=== PATIENT | female | born 1990 | race Two or more races ===

== ENCOUNTER → 2016-05-05 | Outpatient (CLI) | payer BC | LOC: FIMAGING 14:17 | PROVIDERS: ATTEND Advanced Practice Midwife | DX: O43.123 Velamentous insertion of umbilical cord, third trimester (principal); O26.833 Pregnancy related renal disease, third trimester; Z3A.25 25 weeks gestation of pregnancy ==

== ENCOUNTER → 2016-06-02 | Outpatient (CLI) | payer BC | LOC: FIMAGING 13:50 | PROVIDERS: ATTEND Advanced Practice Midwife | DX: O43.123 Velamentous insertion of umbilical cord, third trimester (principal); Z3A.29 29 weeks gestation of pregnancy ==

== ENCOUNTER 2016-08-01 06:20 | Inpatient (IN) | payer BC ==
--- NOTE | 2016-08-01 06:48 | OBPROG ---
OBG Labor Progress Note Assessment/Plan: Assessment:cat1 fhr pain well managed contractions q 15 exam /-1 cephalic srom clear fluid 0315 Plan:expectant management of labor 08/01/16 06:45 Subjective: doing well denies need for pain relief. Yesenia irregular srom clear fluid 0315 - SVE Dilation (cm): 4 Effacement (%): 75 Station: -1 - Physical Exam General Appearance: WD/WN, alert, no apparent distress Neck: non-tender, full range of motion, supple, normal inspection Respiratory: chest non-tender, lungs clear, normal breath sounds Cardiac/Chest: regular rate, rhythm Abdomen: normal bowel sounds Extremities: normal range of motion, Jonathan's sign (negative bilaterally) DTR- Lower Extremities: Knee (R): 1+, Knee (L): 1+ (no clonus bilaterally) Skin: normal color, warm/dry Neuro/Psych: no motor/sensory deficits, alert, normal mood/affect, oriented x 3 ICD10 Worksheet Patient Problems: Problems Problem Status Onset LABOR ROM Acute
[2016-08-01] MEDS ORDERED: OLIVE OIL 118 ML BTL MISC PRN (06:50)
[2016-08-01] MEDS ORDERED: TERBUTALINE SULFATE 1 MG/ML VIAL IV PRN (06:50)
[2016-08-01] MEDS ORDERED: LR 1,000 ML IV PRN (06:50)
[2016-08-01] MEDS ORDERED: EPSOM SALT 454 GM TP PRN (06:50)
[2016-08-01] MEDS ORDERED: OXYTOCIN/RINGERS LACTATE 1,000 ML IV PRN (06:50)
[2016-08-01] MEDS ORDERED: LIDOCAINE 1% 300 MG/30 ML SDV ONE (07:11)
[2016-08-01] MEDS ORDERED: OLIVE OIL 118 ML BTL ONE (07:11)
[2016-08-01] MEDS ORDERED: AMMONIA AROMATIC 1 EACH AMP IH ONE (07:12)
[2016-08-01] MEDS ORDERED: MISOPROSTOL 200 MCG TAB ONE (07:12)
[2016-08-01 07:17] LABS: % IMMATURE GRANULYOCYTES 0.5 % (0.0-1.1); ABSOLUTE IMMATURE GRANULOCYTES 0.05 10^3/uL (0.00-0.10); ADD DIFF? NO; ADD MORPH? NO; ADD SCAN? NO; ATYPICAL LYMPHOCYTE FLAG 10 (0-99); FRAGMENT RBC FLAG 0 (0-99); HEMATOCRIT 35.8 % (38.0-47.0); HEMOGLOBIN 12.2 g/dL (12.6-16.3); LEFT SHIFT FLG 0 (0-99); LIPEMIA HEMOLYSIS FLAG 90 (0-99); MEAN CELL HEMOGLOBIN 30.3 pg (27.9-34.1); MEAN CELL HEMOGLOBIN CONCENTR. 34.1 g/dL (32.4-36.7); MEAN CELL VOLUME 89.1 fL (81.5-99.8); MEAN PLATELET VOLUME 9.5 fL (8.7-11.7); PLATELET CLUMPS FLAG 0 (0-99); PLATELET COUNT 192 10^3/uL (150-400); RED BLOOD CELL COUNT 4.02 10^6/uL (4.18-5.33); RED CELL DISTRIBUTION WIDTH 12.9 % (11.5-15.2)
--- NOTE | 2016-08-01 07:37 | GHP ---
[f rep st] HISTORY AND PHYSICAL DATE OF ADMISSION: 08/01/2016 HISTORY OF PRESENT ILLNESS: Patient is a 25-year-old 1, para 0, with an EDC of 08/13/2016, which gives her a gestational age of 38 and 2/7 weeks', who comes in with rupture of membranes at 3: 15 on 08/01/2016, and regular contractions. Significant other's name is Damon. States feeling posit sofia movement, denies bleeding. Patient has been seeing [facility] routinely since 0 04/08/2016 at 21 and 5/7 weeks'. MEDICAL HISTORY: History of migraine headaches, history of cystitis, kidney stones in 2013. SURGICAL HISTORY: [place] teeth, kidney stones. OBSTETRIC HISTORY: Present : Transfer of care at 20 weeks. M consult for dilated right ureter of baby, intracardiac echogenic foci of the left ventricle and a velamentous insertion of th e cord. Plan is to get a repeat ultrasound of the kidneys of the baby with delivery. SOCIAL HISTORY: Patient is a nonsmoker, denies drug use. . Significant other is Damon. FAMILY HISTORY: Noncontributory. LABORATORY DATA: Patient is O positive. Antibody negative. RPR is nonreactive. Rubella is immune . Hepatitis is negative. Trio screen is negative. HIV is negative. Pap, gonorrhea, and chlamydia are negative. Verifi is negative. One-hour GTT is within normal limits. Drug screen is neg ative. Varicella is immune. PHYSICAL ASSESSMENT: GENERAL: Patient is awake, alert, oriented x3. LUNGS: Clear bilaterally. A BDOMEN: Bowel sounds are positive in all 4 quadrants. EXTREMITIES: DTRs are 1+ bilaterally. Asiya ns sign is negative bilaterally. : Patient is zac routinely. There was a noted variable with contraction. ASSESSMENT: Patient is coping well. Has thoughts about delivery. Will choose nonmedicated, nonint erventive. PLAN: 1. GBS negative. 2. Expectant management of labor. 3. IV fluids to assist and support fetus. /[id number]/MODL
--- NOTE | 2016-08-01 12:53 | OBPROG ---
OBG Labor Progress Note Assessment/Plan: Assessment:cat2 fhr pain well managed contractions q 3-4 exam 6//-1 cephalic srom clear fluid 0315 continued clear fluid coping well Plan:expectant management of labor 08/01/16 06:45 08/01/16 12:52 Objective: 08/01/16 07:00 Patient ABO/Rh O POSITIVE 08/01/16 07:00 - SVE Dilation (cm): 6 Effacement (%): 100 Station: -1 Oxytocin Orders Assessment - Pre-Induction/Augmentation Assessment Gestational Age: 38 week(s) and 2 day(s) ICD10 Worksheet Patient Problems: Problems Problem Status Onset LABOR ROM Acute
--- NOTE | 2016-08-01 17:29 | OBPROG ---
OBG Labor Progress Note Assessment/Plan: Assessment:cat2 fhr pain well managed contractions q 3-4 exam 8/100/0 cephalic srom clear fluid 0315 continued clear fluid coping well with increased need for assistance Plan:expectant management of labor 08/01/16 06:45 08/01/16 12:52 08/01/16 17:28 Subjective: feeling greater pain and some pressure with contractions Objective: 08/01/16 07:00 Patient ABO/Rh O POSITIVE 08/01/16 07:00 - SVE Dilation (cm): 8 Effacement (%): 100 Station: 0 Oxytocin Orders Assessment - Pre-Induction/Augmentation Assessment Gestational Age: 38 week(s) and 2 day(s) ICD10 Worksheet Patient Problems: Problems Problem Status Onset LABOR ROM Acute
--- NOTE | 2016-08-01 18:02 | OBPROG ---
OBG Labor Progress Note Assessment/Plan: Assessment:cat2 fhr pain well managed contractions q 3-4 exam 10100/0 cephalic srom clear fluid 0315 continued clear fluid coping well with increased need for assistance feeling the urge to push. /however fighting the urge will wait a bit to push until patient insticntually will push Plan:expectant management of labor 08/01/16 06:45 08/01/16 12:52 08/01/16 17:28 08/01/16 18:01 Objective: 08/01/16 07:00 Patient ABO/Rh O POSITIVE 08/01/16 07:00 - SVE Dilation (cm): 10 Effacement (%): 100 Station: +1 Oxytocin Orders Assessment - Pre-Induction/Augmentation Assessment Gestational Age: 38 week(s) and 2 day(s) ICD10 Worksheet Patient Problems: Problems Problem Status Onset LABOR ROM Acute
[2016-08-01] MEDS: IBUPROFEN 600 MG TAB PO PRN (19:21)
[2016-08-01] MEDS ORDERED: SIMETHICONE 80 MG TAB CHEW PO PRN (19:23)
[2016-08-01] MEDS ORDERED: HYDROCORTISONE 0.5% CREAM TP PRN (19:23)
[2016-08-01] MEDS ORDERED: HYDROCODONE/APAP 5/325 TAB PO PRN (19:23)
[2016-08-01] MEDS ORDERED: ACETAMINOPHEN 325 MG TAB PO PRN (19:23)
--- NOTE | 2016-08-01 19:33 | OBDEL ---
Info Type: Vaginal GBS+: No Indications for Delivery: Spontaneous Labor, SROM Vaginal Delivery - Labor and Delivery Onset of Contractions Date: 08/01/16 Onset of Contractions Time: 04:45 Onset of Contractions Type: Spontaneous Rupture of Membranes Date: 08/01/16 Rupture of Membranes Time: 03:15 Rupture of Membranes Type: Spontaneous Amniotic Fluid Color: Clear Dilation Complete Date: 08/01/16 Dilation Complete Time: 17:45 Placenta Delivery Date: 08/01/16 Placenta Delivery Time: 18:45 Total Hours of Labor: 14 Laceration: 2nd Degree Repair: 3-0 Vaginal Sponge Count Correct: Yes Vaginal Needle Count Correct: Yes Vaginal Sweep Performed: Yes EBL: 300 Delivery Events: None ICD10 Worksheet Patient Problems: Problems Problem Status Onset LABOR ROM Acute
[2016-08-02] MEDS: IBUPROFEN 600 MG TAB PO PRN ×4 (01:21→20:56)
[2016-08-02] MEDS: DOCUSATE SODIUM 100 MG CAP PO PRN (07:03)
--- NOTE | 2016-08-02 07:44 | OBPP ---
Progress Note Assessment/Plan: Assessment: 1) s/p PPD #1 - pt is stable 2) Anemia - pt is asymptomatic Plan: Continue routine pp care Cont iron BID Plan for d/c home in am 08/02/16 07:46 Subjective: Pt seen and examined. Doing well, no complaints. Some cramping, relief with Motrin. Moderate lochia. Voiding without difficulty. Passing flatus. No BM. BF without difficulty. Objective: 08/02/16 05:40 Patient ABO/Rh O POSITIVE 08/01/16 07:00 Temp Pulse Resp BP Pulse Ox 36.4 C 105 H 18 124/77 H 08/01/16 22:26 08/01/16 22:26 08/01/16 22:26 08/01/16 22:26 Uterine Position/Fundal Height: Umbilicus -2 Uterine Tone: Firm Physical Exam - Physical Exam General Appearance: WD/WN, alert, no apparent distress Respiratory: lungs clear, normal breath sounds Cardiac/Chest: regular rate, rhythm Abdomen: normal bowel sounds, non-tender, soft, flatus (+) Extremities: non-tender, normal inspection Skin: normal color, warm/dry Neuro/Psych: alert, normal mood/affect, oriented x 3
[2016-08-02] MEDS: IRON POLYSAC/IRON HEME 28 MG TAB PO SCH (10:19)
[2016-08-02 21:06] VITALS: O2SAT 96
[2016-08-03] MEDS: IBUPROFEN 600 MG TAB PO PRN ×2 (02:59→09:50)
--- NOTE | 2016-08-03 09:05 | SOAPPROG ---
SOAP Progress Note Assessment/Plan: Assessment: ppd# 2 s/p anemia breast feeding Plan: continue iron and vitamins discharge instructions 08/03/16 09:03 Subjective: patient is doing well. pain is well controlled. normal lochia. breast feeding is going well. denies headache and changes in vision. normal lochia. voiding without difficulty. Objective: Vital Signs Temp Pulse Resp BP Pulse Ox 36.8 C 85 18 113/79 96 08/02/16 20:00 08/02/16 20:00 08/02/16 20:00 08/02/16 20:00 08/02/16 20:00 Laboratory Results 08/02/16 05:40 08/02/16 08/03/16 08/04/16 05:59 05:59 05:59 Output Total 300 Balance -300 Physical Exam - Physical Exam General Appearance: WD/WN, alert, no apparent distress Respiratory: chest non-tender, lungs clear, normal breath sounds Cardiac/Chest: normal peripheral pulses, regular rate, rhythm Abdomen: normal bowel sounds, non-tender, soft, other (fundus firm and non tender) Skin: normal color, warm/dry Extremities: normal range of motion, non-tender, normal inspection, normal capillary refill Neuro/Psych: no motor/sensory deficits, alert, normal mood/affect, oriented x 3 ICD10 Worksheet Patient Problems: Problems Problem Status Onset LABOR ROM Acute
[2016-08-03] MEDS: DOCUSATE SODIUM 100 MG CAP PO PRN (09:49)
[2016-08-03] MEDS: IRON POLYSAC/IRON HEME 28 MG TAB PO SCH (09:49)
[2016-08-03] MEDS ORDERED: LIDOCAINE 1% 2 ML INJ ONE (11:21)
[2016-08-03 11:28] VITALS: BP 111/69; PULSE 87; RESP 16; TEMP 97.1
--- NOTE | 2016-08-03 15:27 | OBGCSDC ---
General Delivery Information - General Info : 1 Para: 1 Labs: Patient ABO/Rh O POSITIVE 08/01/16 07:00 Hct 30.4 % (38.0-47.0) L 08/02/16 05:40 Vaginal - Diagnosis Labor: Spontaneous Rupture of Membranes Type: Spontaneous Amniotic Fluid Color: Clear Laceration: 2nd Degree Repair: 3-0 Delivery Events: None - Operations/Procedures L&D Analgesia/Anesthesia Type: Local - Hospital Course Intrapartum: srom. progressed into labor : uncomplicated post course. started on iron. breast feeding. - Delivery L&D Analgesia/Anesthesia Type: Local Data Ramirez Delivery Date: 08/01/16 Delivery Time: 18:41 MANDI: 08/13/16 Gestational Age: 38 week(s) and 4 day(s) Sex of Infant: Male Weight (gm): 2850 g Score (1 Min): 8 Score (5 Min): 9 Discharge Information - Discharge Information Condition: Good
== END 2016-08-03 13:30 | disposition home or self-care (01) | DRG 775 ==
LOC: FLD 06:20 → FOB 21:38
PROVIDERS: ADMIT Obstetrics & Gynecology; ATTEND Obstetrics & Gynecology
PROC: 10E0XZZ Delivery of Products of Conception, External Approach (ICD-10-PCS; principal; 2016-08-01)
PROC: 0KQM0ZZ Repair Perineum Muscle, Open Approach (ICD-10-PCS; principal; 2016-08-01)
DX: O70.1 Second degree perineal laceration during delivery (principal); Z3A.38 38 weeks gestation of pregnancy; Z37.0 Single live birth
CPT/HCPCS: J2590

== ENCOUNTER → 2016-08-23 | Outpatient (CLI) | payer BC | LOC: FLACT 12:50 | PROVIDERS: ATTEND Advanced Practice Midwife | DX: O92.79 Other disorders of lactation (principal); N64.4 Mastodynia | CPT/HCPCS: G0463 ==

== ENCOUNTER 2017-10-20 01:56 | Inpatient (IN) | payer BC ==
[2017-10-20] MEDS ORDERED: LR 1,000 ML IV PRN (02:51)
[2017-10-20] MEDS ORDERED: IBUPROFEN 600 MG TAB PO PRN (02:51)
[2017-10-20] MEDS ORDERED: TERBUTALINE SULFATE 1 MG/ML VIAL IV PRN (02:51)
[2017-10-20] MEDS ORDERED: MISOPROSTOL 200 MCG TAB PR PRN (02:51)
[2017-10-20] MEDS ORDERED: OXYTOCIN/RINGERS LACTATE 1,000 ML IV PRN (02:51)
[2017-10-20] MEDS ORDERED: LIDOCAINE 1% 300 MG/30 ML SDV SC PRN (02:51)
[2017-10-20] MEDS ORDERED: OLIVE OIL 118 ML BTL MISC PRN (02:51)
[2017-10-20] MEDS ORDERED: EPSOM SALT 454 GM TP PRN (02:51)
--- NOTE | 2017-10-20 03:22 | PDGENHP ---
History and Physical History and Physical: Care: [facility] HPI: Patient is a 27 yo with IUP@38-4wks that presents to L&D with complaints of contractions since 2300. She states they have increased in pain since 0130. She denies any LOF, VB. She reports +FM. She denies any prodromal symptoms of HSV. Denies any outbreaks. EDC: 10/30/17 which is based on Ultrasound at 12 weeks. Her is complicated by: unknown LMP, short interval, HSV2, anemia Review of Systems: Constitutional: Denies any fever, chills, or fatigue HEENT: denies any visual changes, difficulty swallowing, hearing loss Cardiovascular: Denies any chest pain, palpitations, leg swelling Respiratory: denies any cough, wheezing, or shortness of breathe GI: Denies any nausea, vomiting, diarrhea, constipation : denies any dysuria, urgency, frequency, vaginal bleeding Musculoskeletal: denies any muscle or bone pain Skin: denies any rashes Neuro: denies any headache, seizures, lightheadedness, dizziness, or loss of consciousness Psychiatric: denies any depression, anxiety, or SI/HI thoughts HISTORY: Previous OB history: (6#5) Past medical history: HSV2 Past surgical history: none Social: Denies any alcohol, tobacco, or drug use. Family history: Not relevant Medications: PNV, acyclovir, iron Allergies (list reaction): NKDA LABS: Rh: O+ ABS: Neg Rubella: Immune HbsAg: NR HIV: NR VDRL: NR 1hr: 85 GC: Neg Chlamydia: Neg Pap: Normal GBS: negative PHYSICAL EXAM: Constitutional: WN, A&Ox3 HEENT: normocephalic atraumatic, supple Skin: Warm, dry, intact Heart: RRR, no murmur Chest: CTA-B Abdomen: Soft, nontender, gravid SVE: 5/80/-2 Extremities: trace edema, negative homans sign Neuro: grossly normal Psych: normal affect assessment: FHT baseline 140 +accels, no decels, moderate variability Contractions: toco q 4-6 Assessment: 1) 27yo with IUP@ 38-4wks 2) active labor 3) GBS negative 4) Cat 1 FHR tracing Plan: 1) Admit to L&D 2) IA per protocol 3) hydrotherapy/ambulation 4) AROM PRN 5) anticipate Today's visit was approximately 30 min, of which >50% of visit 20 min, was spent face to face with pt on direct counseling/coordination of care.
[2017-10-20 04:13] LABS: PLATELET COUNT 202 10^3/uL (150-400)
[2017-10-20] MEDS ORDERED: AMMONIA AROMATIC 1 EACH AMP IH ONE (04:36)
[2017-10-20] MEDS ORDERED: TERBUTALINE SULFATE 1 MG/ML VIAL ONE (04:36)
[2017-10-20] MEDS ORDERED: LIDOCAINE 1% 300 MG/30 ML SDV ONE (04:36)
[2017-10-20] MEDS ORDERED: OLIVE OIL 118 ML BTL ONE (04:36)
[2017-10-20] MEDS ORDERED: MISOPROSTOL 200 MCG TAB ONE (04:36)
[2017-10-20] MEDS ORDERED: OXYTOCIN 10 UNIT/ML VIAL ONE (04:36)
[2017-10-20] MEDS ORDERED: METHYLERGONOVINE MAL 0.2 MG/ML INJ ONE (05:26)
[2017-10-20] MEDS ORDERED: SIMETHICONE 80 MG TAB CHEW PO PRN (05:40)
[2017-10-20] MEDS ORDERED: HYDROCORTISONE 0.5% CREAM TP PRN (05:40)
[2017-10-20] MEDS ORDERED: DOCUSATE SODIUM 100 MG CAP PO PRN (05:40)
--- NOTE | 2017-10-20 06:00 | OBDEL ---
Info Type: Vaginal Presentation at Delivery: Vertex L&D Analgesia/Anesthesia Type: None GBS+: No Intrapartum Medications: Discontinued Medications Generic Name Dose Route Start Last Admin Trade Name Brittnee PRN Reason Stop Dose Admin Ibuprofen 600 mg 10/20/17 02:51 10/20/17 05:38 Motrin PO 600 mg ONCE PRN Administration post , pain Indications for Delivery: Spontaneous Labor Vaginal Delivery - Delivery Provider Delivery Physician/CNM: Quynh Azevedo - Labor and Delivery Onset of Contractions Date: 10/19/17 Onset of Contractions Time: 23:30 Onset of Contractions Type: Spontaneous Rupture of Membranes Date: 10/20/17 Rupture of Membranes Time: 04:23 Rupture of Membranes Type: Artificial Amniotic Fluid Color: Clear Dilation Complete Date: 10/20/17 Dilation Complete Time: 05:07 Placenta Delivery Date: 10/20/17 Placenta Delivery Time: 05:18 Total Hours of Labor: 5 Non-surgical Procedures: Amniotomy Vaginal Sponge Count Correct: Yes Vaginal Needle Count Correct: Yes Vaginal Sweep Performed: Yes EBL: 350 Delivery Comment: delivered without difficulty. spontaneous cry. dad assisted in . baby to mothers chest. Data MANDI: 10/30/17 Gestational Age: 38 week(s) and 4 day(s) Ramirez Delivery Date: 10/20/17 Delivery Time: 05:12 Sex of : Male Score (1 Min): 8 Score (5 Min): 9 ICD10 Worksheet Patient Problems: Problems Problem Status Onset Normal labor and delivery Acute LABOR ROM Acute - ICD10 Problem Qualifiers (1) Normal labor and delivery
[2017-10-20] MEDS: ACETAMINOPHEN 325 MG TAB PO PRN ×3 (06:33→18:45)
[2017-10-20] MEDS: IBUPROFEN 600 MG TAB PO PRN ×3 (11:30→22:32)
[2017-10-20] MEDS ORDERED: HYDROCODONE/APAP 5/325 TAB PO PRN (19:27)
[2017-10-21] MEDS: ACETAMINOPHEN 325 MG TAB PO PRN ×3 (01:09→14:11)
[2017-10-21] MEDS: IBUPROFEN 600 MG TAB PO PRN ×2 (05:01→11:27)
--- NOTE | 2017-10-21 10:53 | OBPP ---
Progress Note Assessment/Plan: Assessment: 1) 2) Post- day 1 3) Normal PP progress 4) Breast feeding mom Plan: 1) support 2) D/C home today after circumcision 10/21/17 10:48 Subjective/ Course: 10/21/17 10:50 Pt doing well, reports cramping when breast feeding. Denies heavy bleeding, severe pain or engorgement. Objective: 10/20/17 20:26 Patient ABO/Rh O POSITIVE 10/20/17 04:01 Temp Pulse Resp BP Pulse Ox 36.3 C 93 15 114/72 96 10/21/17 08:00 10/21/17 08:00 10/21/17 08:00 10/21/17 08:00 10/21/17 08:00 VSS Uterine Position/Fundal Height: At Umbilicus Uterine Tone: Firm
--- NOTE | 2017-10-21 11:05 | OBGCSDC ---
General Delivery Information - General Info : 2 Para: 2 Abortions: 0 Type: Vaginal L&D Analgesia/Anesthesia Type: None Admission Date: 10/20/17 Labs: Patient ABO/Rh O POSITIVE 10/20/17 04:01 Hct 28.5 % (38.0-47.0) L 10/20/17 20:26 Continue PO iron at home. - Hospital Course : 10/21/17 10:50 Pt doing well, reports cramping when breast feeding. Denies heavy bleeding, severe pain or engorgement. Vaginal - Delivery Provider Delivery Physician/CNM: Quynh Azevedo - Diagnosis Labor: Spontaneous Rupture of Membranes Type: Artificial Amniotic Fluid Color: Clear - Procedures Non-surgical Procedures: Amniotomy - Delivery Non-surgical Procedures: Amniotomy EBL: 350 Data MANDI: 10/30/17 Gestational Age: 38 week(s) and 5 day(s) Ramirez Delivery Date: 10/20/17 Delivery Time: 05:12 Sex of : Male [place] Weight (gm): 3104 kg Score (1 Min): 8 Score (5 Min): 9 Discharge Information - Discharge Information Prescriptions: Ibuprofen [Motrin (*)] 600 mg PO Q6H PRN #60 tab PRN Reason: Pain, Moderate Able To Take Po Instruction/Follow Up: Two Weeks, Four Weeks, Six Weeks
[2017-10-21 20:23] VITALS: BP 114/72
== END 2017-10-21 14:25 | disposition home or self-care (01) | DRG 775 ==
LOC: FLD 01:56 → FOB 08:30
PROVIDERS: ADMIT Advanced Practice Midwife; ATTEND Advanced Practice Midwife
DX: O80 Encounter for full-term uncomplicated delivery (principal); Z37.0 Single live birth; Z3A.38 38 weeks gestation of pregnancy
CPT/HCPCS: J2210; J2590; J3105